=== PATIENT | female | born 1940 | race Caucasian/White ===

== ENCOUNTER 2017-01-22 03:34 | Inpatient (IN) | payer OTHER ==
--- NOTE | ~2017-01-22 | CN ---
Consultation Report [facility] [address] [place]. [address] NAME: JONAS WOODS : 44 STATUS : ADM IN [facility]#: [id number] AGE: 76 ADM/REG DATE : 01/22/17 MR#: [id number] REPORT SERV DATE: 01/22/17 DICTATED BY: TARAH ESPINOZA DATE: 01/22/17 REPORT STATUS : Draft TRANSCRIBED BY: MODL DATE: 01/22/17 NEPHROLOGY CONSULT DATE OF CONSULTATION: 01/22/2017 REASON FOR CONSULT: CKD, proteinuria. HISTORY OF PRESENT ILLNESS: Ms. Woods is a very pleasant 76-year-old white female, who has previously been seen in the office of [facility] by Dr. Agustin Valerio. Reviewing records shows that her creatinine was 0.8 in 03/2016. She had previously been on Avastin chemotherapy for stage IV ovarian cancer with her last dose being approximately in 09/2016. On 11/18/2016, creatinine was 2.4. On 11/25/2016, creatinine was 2.5, and on 12/09/2016, creatinine went up to 3.0. She was taken off ARB, HCTZ, and Aldactone with improvement in creatinine to 2.3 by 12/30/2016. At that time, her urine protein creatinine ratio was 1.42. She was admitted earlier today with pleural effusions and dyspnea, and she is status post 1100 mL right thoracentesis earlier today. Here at [facility], her creatinine is 3.0. She denies OTC use of NSAIDs or urinary outlet obstructive symptoms. PAST MEDICAL HISTORY: 1. Acute kidney injury/CKD as per HPI. 2. Thrombocytopenia. 3. Stage IV ovarian cancer, status post chemotherapy with MediPort in place. 4. Hyperlipidemia. 5. DVT and PE, status post IVC filter. 6. Hypertension. 7. Hypothyroid. MEDICATIONS ON ADMISSION: Amlodipine 2.5 mg daily, Lipitor, hydralazine 25 mg t.i.d., labetalol 200 mg b.i.d., Synthroid 25 mcg daily, and sodium bicarb. FAMILY HISTORY: No ESRD. SOCIAL HISTORY: Lifelong nonsmoker. 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 She is a and lives in [place]. REVIEW OF SYSTEMS: Please see HPI for pertinent details. PHYSICAL EXAMINATION: VITAL SIGNS: Temperature 95.7, pulse 73, respirations 20, blood pressure 178/94, and 99% saturation on 2 liters per nasal cannula. GENERAL: She is a very pleasant white female. Awake, alert, oriented, and cooperative with the exam. Consultation Report [facility] [address] [place]. [address] NAME: JONAS WOODS : 44 STATUS : ADM IN PAT#: [id number] AGE: 76 ADM/REG DATE : 01/22/17 MR#: [id number] REPORT SERV DATE: 01/22/17 DICTATED BY: TARAH ESPINOZA DATE: 01/22/17 REPORT STATUS : Draft TRANSCRIBED BY: MODMandy DATE: 01/22/17 NEUROLOGIC: Grossly nonfocal. She is in no distress, sitting in her hospital bed. Intake and output not recorded. HEENT: She has no icterus. No jaundice. NECK: JVD 8 to 10 cm. LUNGS: She has bilateral rhonchi with decreased breath sounds at the left base. No dyspnea or tachypnea on O2 per nasal cannula. HEART: Regular rate and rhythm. ABDOMEN: Soft, nontender, nondistended. Bowel sounds present throughout extremities without edema. SKIN: Without rash. No Tompkins catheters in place. MUSCULOSKELETAL: Shows bilateral hand osteoarthritis, deformities without acute gout. LABORATORY DATA: Sodium 141, potassium 4.4, bicarb 22, BUN 36, creatinine 3, GFR 15 mL/minute. Calcium 8.8. Troponin 0.03. Magnesium 2.4. White count 5,800 with 3% eosinophils. INR 1.1. Hemoglobin 13.5, platelets 54,000. Urinalysis shows proteinuria, but no hematuria. ASSESSMENT AND PLAN: Ms. Woods has developed progressive chronic kidney disease over the last two months in the setting of stage IV ovarian cancer, proteinuria, pleural effusions, hypertension, and thrombocytopenia. Her other medical history is as outlined above. The reason for her worsening chronic kidney disease and proteinuria is unclear. There is concern for Avastin-induced hypertension, proteinuria, and possibly thrombotic microangiopathy ? Long discussion with the patient and family today. If she does not improve over the weekend, would have a low threshold for proceeding with renal biopsy in the near future. In the meantime, check renal ultrasound and renal artery Doppler ultrasound, increase blood pressure medications, continue supportive care, watch labs, and avoid nephrotoxic medications. The reason for her pleural effusions may be related to proteinuria ? We will follow closely with you. Appreciate consult on this very pleasant patient. NC/MODL Tarah Espinoza M.D. / [id number] CC: MD Agustin Rich MD
--- NOTE | ~2017-01-22 | CN ---
Consultation Report [address] [place]. [address] NAME: JONAS BRYSON : 44 STATUS : DIS IN PAT#: [id number] AGE: 76 ADM/REG DATE : 01/22/17 MR#: [id number] REPORT SERV DATE: 01/24/17 DICTATED BY: BROOKE ROBERTS III DATE: 01/24/17 REPORT STATUS : Draft TRANSCRIBED BY: MODL DATE: 01/24/17 CONSULTATION DATE OF CONSULTATION: 01/23/2017 REASON FOR CONSULT: 1. Incisional hernia. 2. Recommendation regarding surgical management. HISTORY OF PRESENT ILLNESS: I am asked to see this 76-year-old female, hospitalized for the above reasons. As the patient has a history of ovarian cancer. She has had undergone definitive surgery and has been receiving chemotherapy. She is admitted on 01/22/2017 with chest pain, shortness of breath, secondary to pleural effusions. The patient has a chronic incisional hernia. She has had no nausea, vomiting, or obstructive symptoms, or pain associated with the hernia. The hernia is symptomatic in terms of local discomfort and she would like to consider having it repaired. PAST MEDICAL HISTORY: 1. History of ovarian cancer, which is recurrent. 2. Hypertension. 3. Hypothyroidism. 4. History of renal failure. 5. History of pulmonary embolus and deep venous thrombosis in the past. PAST SURGICAL HISTORY: Includes IVC filter, ankle surgery, cholecystectomy, cytoreductive surgery for ovarian cancer. FAMILY HISTORY: Unremarkable. SOCIAL HISTORY: No history of tobacco or alcohol use. MEDICATIONS: As per medication list. ALLERGIES: LATEX. REVIEW OF SYSTEMS: Basically with some nausea and shortness of breath. She states she has a hernia which is reducible. OBJECTIVE: GENERAL: On exam, she is alert and oriented x3. She is comfortable. HEENT: Unremarkable. NEUROLOGIC: Cranial nerves 2 through 12 are normal. LUNGS: Clear. Consultation Report [place] [place]. [address] NAME: JONAS BRYSON : 42 STATUS : DIS IN PAT#: [id number] AGE: 76 ADM/REG DATE : 01/22/17 MR#: [id number] REPORT SERV DATE: 01/24/17 DICTATED BY: BROOKE ROBERTS III DATE: 01/24/17 REPORT STATUS : Draft TRANSCRIBED BY: CAMMY DATE: 01/24/17 CARDIAC: Normal. ABDOMEN: Soft, nontender. She has a periumbilical hernia, which is soft and completely reducible. EXTREMITIES: Normal. VITAL SIGNS: Blood pressure 152/72, pulse 75, AND temperature 98.7. LABORATORY DATA: CT scan of the abdomen and pelvis and chest on admission shows large bilateral pleural effusions. There is moderate cardiomegaly. There was an anterior abdominal wall hernia noted as well with some ascites. Creatinine 2.97. ASSESSMENT: 1. A 76-year-old female with chronic asymptomatic and reducible incisional hernia. 2. Bilateral large pleural effusions which are symptomatic. 3. History of ovarian cancer, recurrent. 4. History of chronic kidney disease with creatinine 2.9. 5. History of previous cytoreductive surgery for ovarian cancer. 6. History of deep venous thrombosis and pulmonary embolus. 7. Hypothyroidism. PLAN: The patient has an incisional hernia which is stable, and reduced, and asymptomatic currently. The patient is currently being treated for her pleural effusions with bilateral thoracentesis. I have discussed with the patient, the fact that her hernia can be repaired electively if she wishes. This would depend on a stabilization of her renal function and would also be determined by her prognosis regarding her ovarian cancer. I do not feel the hernia needs to be repaired emergently on this admission. I have asked her to call my office after she is discharged when she wishes to schedule repair of the hernia, we will do so for her. This procedure, the risks, benefits, and alternatives were discussed with her. There is a potential risk for incarceration of the hernia and the symptoms, all these were discussed with her. Should she have any of these symptoms, she was asked to call or return. Otherwise, again I will see her back in the office and we will consider elective repair at that time. The patient's questions were answered. She understands and agrees to this plan. PANDA/CAMMY Brooke Roberts III, M.D. / [id number] CC: Rustam Dixon MD Consultation Report [facility] [address] [place] [address] NAME: JONAS BRYSON : 42 STATUS : DIS IN PAT#: [id number] AGE: 76 ADM/REG DATE : 01/22/17 MR#: [id number] REPORT SERV DATE: 01/24/17 DICTATED BY: BROOKE ROBERTS III DATE: 01/24/17 REPORT STATUS : Draft TRANSCRIBED BY: MODL DATE: 01/24/17 Duong Carlisle M.D.
--- NOTE | ~2017-01-22 | HP ---
History And Physical [facility] [address] [place]. [address] NAME: JONAS WOODS : 44 STATUS : ADM IN PAT#: [id number] AGE: 76 ADM/REG DATE : 01/22/17 MR#: [id number] REPORT SERV DATE: 01/22/17 DICTATED BY: RUSTAM DIXON DATE: 01/22/17 REPORT STATUS : Draft TRANSCRIBED BY: MODL DATE: 01/22/17 DATE OF ADMISSION: 01/22/2017 REASON FOR ADMISSION: Chest pain, shortness of breath, and recurrent ovarian cancer. HISTORY OF PRESENT ILLNESS: Ms. Woods is a delightful 76-year-old, 0, female, who is being treated for recurrent high-grade serous ovarian cancer, most recently treated with Doxil and Avastin. However, due to her persistent thrombocytopenia and decreased renal function due to Avastin use, we have been unable to treat her for the past several months. She has been on a chemo holiday. She up until today did not have any significant signs of active disease other than a palpable right inguinal lymph node. Last night, she started to have some what she describes as chest pain and also abdominal fullness and tenderness and some nausea, but no emesis. She was then taken to the emergency room for evaluation. A CT scan was done, which reveals bilateral pleural effusions right greater than left. Otherwise, there was some evidence of small bowel within the ventral hernia, but no evidence of strangulation, no evidence of high-grade bowel obstruction. PAST MEDICAL HISTORY: Hypertension, hypothyroidism, renal failure, hypercholesterolemia, recurrent ovarian cancer, history of pulmonary embolism, and deep venous thrombosis. PAST SURGICAL HISTORY: She had orthopedic surgery on the left ankle and IVC filter placed. She had cholecystectomy, appendectomy, and cytoreductive surgery for her ovarian cancer. GYNECOLOGIC HISTORY: Ovarian cancer. FAMILY HISTORY: Negative for GI, , or breast malignancies. She is negative for BRCA mutation. SOCIAL HISTORY: Negative for tobacco, alcohol, or illicit drug use. MEDICATIONS: Please see chart. ALLERGIES: LATEX. REVIEW OF SYSTEMS: Significant for mild abdominal discomfort, some nausea, shortness of breath, fullness in her chest but not necessarily chest pain this morning per her report. She denies any vaginal bleeding. No vomiting. No swelling in her extremities. PHYSICAL EXAMINATION: VITAL SIGNS: She is afebrile. She has elevated blood pressure this morning of 190/80. We will restart her home medications this morning. HEENT: Normocephalic and atraumatic. HEART: Regular rate and rhythm. LUNGS: She has decreased breath sounds in the bilateral lung bases and the bases of her lungs are dull to percussion where her upper lobes are more tympanic. History And Physical [address] [place]. [address] NAME: JONAS WOODS : 42 STATUS : ADM IN PAT#: [id number] AGE: 76 ADM/REG DATE : 01/22/17 MR#: [id number] REPORT SERV DATE: 01/22/17 DICTATED BY: RUSTAM DIXON DATE: 01/22/17 REPORT STATUS : Draft TRANSCRIBED BY: CAMMY DATE: 01/22/17 ABDOMEN: Soft with no appreciable tenderness. There is a ventral midline hernia with a reducible knuckle of small bowel present. She is tender over this area. EXTREMITIES: No clubbing, cyanosis, or edema. IMAGING: On CT scan, again there was noted to be bilateral pleural effusions and some cardiomegaly that was described as bilateral large pleural effusions on the [facility] scan read. The overnight read was described as moderate on the right and small on the left. I am unable to view the images this morning. There was also hernia noted. There was a discrepancy in the CT scan reads, but she does not have any physical signs of small-bowel obstruction. ASSESSMENT AND PLAN: Going forward, I will ask the Interventional Radiology to drain the right lung and we will sent for cytology and culture. I will also consult Dr. Jose Trujillo with Surgery for evaluation of her hernia repair. This may or may not be able to be done this hospital admission, but at least initiate the evaluation. Her platelet count is 54 today , which is low, but will still be conducive to an operation if they deem necessary. Her creatinine is 2.9, and this is chronic in nature, and again likely due to her bevacizumab treatment previously and also her chronic hypertension. We will proceed as outlined above. This plan was discussed in detail with the patient, who is in agreement. TB/MODL Rustam Dixon MD / [id number] CC: MD Duong Rich M.D.
[~2017-01-22 03:34] MED LIST: ACET500CAP PO; AVASTIN IV; CHEMO IV; COMP10B PO; DEX4 PO; EXCEDRIN EXTRA1 EACH PO; HCTZ12.5 PO; HYDROCHLOROT12.5 MG PO; HYDROCHLOROTHIAZIDE PO; KDUR10 PO; KLOR-CON M1010 MEQ PO; LEVAQUIN750 MG PO; LEVOTHYROXIN25 MCG PO; LEVOTHYROXINE PO; LIPITOR PO; LIPITOR10 PO; LOVENOX40 SC; LOVENOX60 SC; MAGNESIUM PO; METANX PO; NEUR300 PO; PCET PO; PRILO PO; PROTONIX PO; SENOKOTS PO; SYN.025B PO; TOPXL50 PO; VANC125UDL PO; ZOFRAN8; ZOFRAN8 PO; ZOFRANODT8 PO; [UNRECOGNIZED DRUG - OTHER] IV
[2017-01-22 03:36] LABS: BASOPHILS 0.5 %; BASOPHILS ABSOLUTE 0.03 10/3/uL (0.0-0.16); EOSINOPHILS 2.7 %; EOSINOPHILS ABSOLUTE 0.16 10/3/uL (0.0-0.53); ER CBC TAT 0 Hrs 05 Mins; HEMATOCRIT 39.6 % (36.0-48.0); HEMOGLOBIN 13.5 g/dL (12.0-16.0); IMMATURE GRANULOCYTES 0.2 %; IMMATURE GRANULOCYTES ABSOLUTE 0.01 10/3/uL (0.0-0.11); LYMPHOCYTES 12.3 %; LYMPHOCYTES ABSOLUTE 0.72 10/3/uL (0.67-4.30); MEAN CORPUS HGB CONC 34.1 g/dL (32.0-36.0); MEAN CORPUSCULAR HEMOGLOB 31.7 pg (26.0-34.0); MEAN PLATELET VOLUME 10.2 fL (9.2-13.0); MONOCYTES 8.2 %; MONOCYTES ABSOLUTE 0.48 10/3/uL (0.21-1.20); NEUTROPHILS 76.1 %; NEUTROPHILS ABSOLUTE 4.43 10/3/uL (2.02-8.40); PLATELET COUNT 54 10/3/uL (150-400); RBC DISTRIBUTION WIDTH 16.9 % (12.0-16.0); RED CELL COUNT 4.26 10/6/uL (4.0-5.6); WHITE BLOOD CELLS 5.8 10/3/uL (4.5-10.5)
[2017-01-22 03:41] LABS: INTERNATIONAL NORMAL RATI 1.1 UNITS (-); PARTIAL THROMBO TIME 28.7 SEC (22.5-37.2); PROTIME (NOT ORD) 13.8 SEC (12.0-14.5)
[2017-01-22 03:45] LABS: MANUAL DIFF NO %
[2017-01-22 03:49] LABS: ASCORBIC ACID (UR NOT ORDER) 20 (NEG); BILIRUBIN, URINE NEGATIVE (NEG); ER URINALYSIS TAT 0 Hrs 00 Mins; KETONE, URINE NEGATIVE (NEG); LEUKOCYTE ESTERASE(NOT OR NEG (NEG); NITRITE (URINE) NEG (NEG); WBC (NOT ORDERED) (RFLEX) 10 (0-5)
[2017-01-22 03:50] LABS: BUN (BLOOD UREA NITROGEN) 36 MG/DL (6-23); CALCIUM, SERUM 8.8 MG/DL (8.5-10.4); CHEST PAIN PROFILE TAT 0 Hrs 19 Mins; CHLORIDE, SERUM 110 MMOL/L (96-112); CO2 (CARBON DIOXIDE) 21 MMOL/L (24-34); CREATININE 2.97 MG/DL (0.55-1.02); GFR AFRICAN AMERICAN 17 ML/MIN (>=60); GFR NON AFRICAN AMERICAN 15 ML/MIN (>=60); GLUCOSE, SERUM 125 MG/DL (60-99); POTASSIUM, SERUM 4.4 MMOL/L (3.5-5.3); SODIUM, SERUM 141 MMOL/L (135-148); TROPONIN I 0.03 NG/ML (<0.05)
[2017-01-22 04:04] LABS: PLATELET ESTIMATE DEC (ADEQUATE); RBC MORPHOLOGY ABN (NORMAL)
[2017-01-22] MEDS ORDERED: [UNRECOGNIZED DRUG - OTHER] IV (04:45)
[2017-01-22] MEDS ORDERED: NORV25 PO (04:46)
[2017-01-22] MEDS ORDERED: TRAN200 PO (04:47)
[2017-01-22] MEDS ORDERED: SODBICAR10 PO (04:47)
[2017-01-22] MEDS ORDERED: APRES25 PO (04:47)
[2017-01-22] MEDS ORDERED: LIPITOR10 PO (04:48)
[2017-01-22] MEDS ORDERED: SYN88 PO (04:48)
[2017-01-22] MEDS ORDERED: ZANTAC OTC PO (04:49)
[2017-01-22] MEDS ORDERED: ACET500CAP PO (04:50)
[2017-01-23 04:53] LABS: BASOPHILS 0.8 %; BASOPHILS ABSOLUTE 0.04 10/3/uL (0.0-0.16); EOSINOPHILS 2.3 %; EOSINOPHILS ABSOLUTE 0.12 10/3/uL (0.0-0.53); HEMOGLOBIN 11.6 g/dL (12.0-16.0); LYMPHOCYTES 14.2 %; LYMPHOCYTES ABSOLUTE 0.73 10/3/uL (0.67-4.30); MEAN CORPUS HGB CONC 33.6 g/dL (32.0-36.0); MEAN CORPUSCULAR VOLUME 95.3 fL (80-100); MEAN PLATELET VOLUME 9.9 fL (9.2-13.0); MONOCYTES 9.3 %; MONOCYTES ABSOLUTE 0.48 10/3/uL (0.21-1.20); NEUTROPHILS 73.4 %; NEUTROPHILS ABSOLUTE 3.78 10/3/uL (2.02-8.40); RBC DISTRIBUTION WIDTH 16.5 % (12.0-16.0); RED CELL COUNT 3.62 10/6/uL (4.0-5.6); WHITE BLOOD CELLS 5.2 10/3/uL (4.5-10.5)
[2017-01-23 04:56] LABS: HEMATOCRIT 34.5 % (36.0-48.0); PLATELET COUNT 48 10/3/uL (150-400)
[2017-01-23 04:57] LABS: MANUAL DIFF NO %
[2017-01-23 05:47] LABS: PLATELET ESTIMATE DEC (ADEQUATE); RBC MORPHOLOGY NORM (NORMAL)
[2017-01-23 06:13] LABS: BUN (BLOOD UREA NITROGEN) 38 MG/DL (6-23); CALCIUM, SERUM 8.2 MG/DL (8.5-10.4); CHLORIDE, SERUM 112 MMOL/L (96-112); CO2 (CARBON DIOXIDE) 20 MMOL/L (24-34); CREATININE 2.95 MG/DL (0.55-1.02); GFR AFRICAN AMERICAN 17 ML/MIN (>=60); GFR NON AFRICAN AMERICAN 15 ML/MIN (>=60); POTASSIUM, SERUM 4.6 MMOL/L (3.5-5.3); SODIUM, SERUM 144 MMOL/L (135-148)
[2017-01-23 06:16] LABS: ALBUMIN 2.8 G/DL (3.5-5.0); GLUCOSE, SERUM 71 MG/DL (60-99); PHOSPHORUS, SERUM 4.2 MG/DL (2.5-4.5)
[2017-01-24 04:43] LABS: BASOPHILS 0.4 %; BASOPHILS ABSOLUTE 0.02 10/3/uL (0.0-0.16); EOSINOPHILS 3.7 %; EOSINOPHILS ABSOLUTE 0.17 10/3/uL (0.0-0.53); HEMATOCRIT 33.5 % (36.0-48.0); HEMOGLOBIN 10.9 g/dL (12.0-16.0); IMMATURE GRANULOCYTES 0.2 %; IMMATURE GRANULOCYTES ABSOLUTE 0.01 10/3/uL (0.0-0.11); LYMPHOCYTES 17.1 %; LYMPHOCYTES ABSOLUTE 0.79 10/3/uL (0.67-4.30); MEAN CORPUS HGB CONC 32.5 g/dL (32.0-36.0); MEAN CORPUSCULAR HEMOGLOB 31.7 pg (26.0-34.0); MEAN CORPUSCULAR VOLUME 97.4 fL (80-100); MEAN PLATELET VOLUME 10.7 fL (9.2-13.0); MONOCYTES 8.7 %; NEUTROPHILS 69.9 %; NEUTROPHILS ABSOLUTE 3.22 10/3/uL (2.02-8.40); RED CELL COUNT 3.44 10/6/uL (4.0-5.6); WHITE BLOOD CELLS 4.6 10/3/uL (4.5-10.5)
[2017-01-24 04:45] LABS: MANUAL DIFF NO %; PLATELET COUNT 48 10/3/uL (150-400)
[2017-01-24 04:55] LABS: ALBUMIN 2.8 G/DL (3.5-5.0); CALCIUM, SERUM 8.2 MG/DL (8.5-10.4); CHLORIDE, SERUM 109 MMOL/L (96-112); CO2 (CARBON DIOXIDE) 19 MMOL/L (24-34); CREATININE 2.91 MG/DL (0.55-1.02); GFR AFRICAN AMERICAN 18 ML/MIN (>=60); GFR NON AFRICAN AMERICAN 15 ML/MIN (>=60); GLUCOSE, SERUM 60 MG/DL (60-99); POTASSIUM, SERUM 4.6 MMOL/L (3.5-5.3); SODIUM, SERUM 142 MMOL/L (135-148)
[2017-01-24 04:56] LABS: BUN (BLOOD UREA NITROGEN) 43 MG/DL (6-23)
[2017-02-28] MEDS ORDERED: APRES25 PO (16:19)
[2017-02-28] MEDS ORDERED: LEVOTHYROXIN88 MCG PO (16:19)
[2017-02-28] MEDS ORDERED: NORV5 PO (16:19)
[2017-02-28] MEDS ORDERED: SODBICAR10 PO (16:19)
[2017-02-28] MEDS ORDERED: TRAN200 PO (16:19)
[2017-02-28] MEDS ORDERED: [UNRECOGNIZED DRUG - OTHER] IV (16:20)
[2017-02-28] MEDS ORDERED: MULTIVIT/MIN PO (16:21)
[2017-02-28] MEDS ORDERED: VITD PO (16:21)
[2017-02-28] MEDS ORDERED: GLUTAMINE PO (16:21)
[2017-06-16] MEDS ORDERED: [UNRECOGNIZED DRUG - MIXTURE] IV (15:01)
[2017-06-16] MEDS ORDERED: CENTRUM PO (15:01)
[2017-06-16] MEDS ORDERED: LEVOTHYROXIN88 MCG PO (15:02)
[2017-06-16] MEDS ORDERED: CHEMOTHERAPY IV (15:02)
[2017-06-16] MEDS ORDERED: SODBICAR10 PO (15:03)
[2017-06-16] MEDS ORDERED: VITD PO (15:03)
[2017-06-16] MEDS ORDERED: DEMA100 PO (15:03)
[2017-06-16] MEDS ORDERED: TRAN200 PO (15:04)
[2017-06-16] MEDS ORDERED: NORV5 PO (15:04)
[2017-06-16] MEDS ORDERED: APRES50 PO (15:04)
[2017-06-21] MEDS ORDERED: PERCOCET 7.5/321 TAB PO (07:36)
== END 2017-01-24 12:32 | disposition home or self-care (01) | DRG 187 ==
LOC: ER 03:34 → ER/OF 04:39 → 2SO 06:33 → 4EA 17:55
PROVIDERS: Emergency Medicine; Internal Medicine Nephrology
PROC: 0W993ZX Drainage of Right Pleural Cavity, Percutaneous Approach, Diagnostic (ICD-10-PCS; principal; 2017-01-22)
PROC: 0W9B3ZX Drainage of Left Pleural Cavity, Percutaneous Approach, Diagnostic (ICD-10-PCS; 2017-01-23)
DX: J90 Pleural effusion, not elsewhere classified (principal); N17.9 Acute kidney failure, unspecified; C56.9 Malignant neoplasm of unspecified ovary; D69.6 Thrombocytopenia, unspecified; K43.9 Ventral hernia without obstruction or gangrene; E78.00 Pure hypercholesterolemia, unspecified; R06.02 Shortness of breath; Z98.890 Other specified postprocedural states; Z91.040 Latex allergy status; Z86.718 Personal history of other venous thrombosis and embolism; Z86.711 Personal history of pulmonary embolism; K43.2 Incisional hernia without obstruction or gangrene
CPT/HCPCS: 32555; 49405; 71010; 71250; 74176; 80048; 80069; 81001; 82570; 83735; 84156; 84484; 85025; 85610; 85730; 87070; 87075; 87205; 88112; 88305; 93005; 93975; 99291; A9270-GY; C1769; J1170; J2405

== ENCOUNTER 2017-01-31 14:14 | Emergency (ER) | payer OTHER ==
[~2017-01-31 14:14] MED LIST changes: +APRES25 PO; +NORV25 PO; +SODBICAR10 PO; +SYN88 PO; +TRAN200 PO; +ZANTAC OTC PO
[2017-01-31 15:36] LABS: BASOPHILS 0.7 %; BASOPHILS ABSOLUTE 0.03 10/3/uL (0.0-0.16); EOSINOPHILS 2.8 %; EOSINOPHILS ABSOLUTE 0.13 10/3/uL (0.0-0.53); ER CBC TAT 0 Hrs 07 Mins; HEMATOCRIT 34.1 % (36.0-48.0); HEMOGLOBIN 11.1 g/dL (12.0-16.0); IMMATURE GRANULOCYTES 0.2 %; LYMPHOCYTES 10.5 %; LYMPHOCYTES ABSOLUTE 0.48 10/3/uL (0.67-4.30); MEAN CORPUS HGB CONC 32.6 g/dL (32.0-36.0); MEAN CORPUSCULAR HEMOGLOB 31.6 pg (26.0-34.0); MEAN CORPUSCULAR VOLUME 97.2 fL (80-100); MEAN PLATELET VOLUME 9.5 fL (9.2-13.0); MONOCYTES 13.5 %; MONOCYTES ABSOLUTE 0.62 10/3/uL (0.21-1.20); NEUTROPHILS 72.3 %; NEUTROPHILS ABSOLUTE 3.31 10/3/uL (2.02-8.40); PLATELET COUNT 50 10/3/uL (150-400); RBC DISTRIBUTION WIDTH 15.4 % (12.0-16.0); RED CELL COUNT 3.51 10/6/uL (4.0-5.6); WHITE BLOOD CELLS 4.6 10/3/uL (4.5-10.5)
[2017-01-31 15:37] LABS: IMMATURE GRANULOCYTES ABSOLUTE 0.01 10/3/uL (0.0-0.11); MANUAL DIFF NO %
[2017-01-31 15:58] LABS: PLATELET ESTIMATE DEC (ADEQUATE)
[2017-01-31 16:23] LABS: ALBUMIN 3.2 G/DL (3.5-5.0); ALKALINE PHOSPHATASE 85 U/L (45-117); CALCIUM, SERUM 8.1 MG/DL (8.5-10.4); CHLORIDE, SERUM 110 MMOL/L (96-112); CO2 (CARBON DIOXIDE) 22 MMOL/L (24-34); CREATININE 3.14 MG/DL (0.55-1.02); GFR AFRICAN AMERICAN 16 ML/MIN (>=60); GFR NON AFRICAN AMERICAN 14 ML/MIN (>=60); POTASSIUM, SERUM 5.1 MMOL/L (3.5-5.3); SGOT(AST) 12 U/L (5-40); SGPT(ALT) 11 U/L (5-65); SODIUM, SERUM 143 MMOL/L (135-148); TOTAL BILIRUBIN 0.7 MG/DL (0-1.2); TOTAL PROTEIN 6.3 G/DL (6.0-8.5)
[2017-01-31 16:24] LABS: BUN (BLOOD UREA NITROGEN) 36 MG/DL (6-23); GLOBULIN 3.1 G/DL (2.5-4.1); GLUCOSE, SERUM 102 MG/DL (60-99)
[2017-02-28] MEDS ORDERED: NORV5 PO (16:19)
[2017-02-28] MEDS ORDERED: LEVOTHYROXIN88 MCG PO (16:19)
[2017-02-28] MEDS ORDERED: APRES25 PO (16:19)
[2017-02-28] MEDS ORDERED: TRAN200 PO (16:19)
[2017-02-28] MEDS ORDERED: SODBICAR10 PO (16:19)
[2017-02-28] MEDS ORDERED: [UNRECOGNIZED DRUG - OTHER] IV (16:20)
[2017-02-28] MEDS ORDERED: GLUTAMINE PO (16:21)
[2017-02-28] MEDS ORDERED: MULTIVIT/MIN PO (16:21)
[2017-02-28] MEDS ORDERED: VITD PO (16:21)
[2017-06-16] MEDS ORDERED: [UNRECOGNIZED DRUG - MIXTURE] IV (15:01)
[2017-06-16] MEDS ORDERED: CENTRUM PO (15:01)
[2017-06-16] MEDS ORDERED: CHEMOTHERAPY IV (15:02)
[2017-06-16] MEDS ORDERED: LEVOTHYROXIN88 MCG PO (15:02)
[2017-06-16] MEDS ORDERED: SODBICAR10 PO (15:03)
[2017-06-16] MEDS ORDERED: DEMA100 PO (15:03)
[2017-06-16] MEDS ORDERED: VITD PO (15:03)
[2017-06-16] MEDS ORDERED: APRES50 PO (15:04)
[2017-06-16] MEDS ORDERED: NORV5 PO (15:04)
[2017-06-16] MEDS ORDERED: TRAN200 PO (15:04)
[2017-06-21] MEDS ORDERED: PERCOCET 7.5/321 TAB PO (07:36)
== END 2017-01-31 17:06 | disposition home or self-care (01) ==
LOC: ER 14:14
PROVIDERS: Emergency Medicine
DX: J90 Pleural effusion, not elsewhere classified (principal); C56.9 Malignant neoplasm of unspecified ovary; I10 Essential (primary) hypertension; Z91.040 Latex allergy status; Z88.8 Allergy status to other drugs, medicaments and biological substances; Z79.899 Other long term (current) drug therapy
CPT/HCPCS: 71010; 80053; 85025; 93005; 99285

== ENCOUNTER 2017-02-20 18:15 | Inpatient (IN) | payer OTHER ==
--- NOTE | ~2017-02-20 | HP ---
History And Physical [address] [place]. [address] NAME: JONAS WOODS : 42 STATUS : DIS IN PAT#: [id number] AGE: 76 ADM/REG DATE : 02/20/17 MR#: [id number] REPORT SERV DATE: 04/10/17 DICTATED BY: CRESCENCIO FRANCO DATE: 04/10/17 REPORT STATUS : Draft TRANSCRIBED BY: CAMMY DATE: 04/10/17 DATE OF ADMISSION: 02/20/2017 ADMITTING DIAGNOSES: 1. Ovarian carcinoma. 2. Shortness of breath. 3. Ascites. HISTORY OF PRESENT ILLNESS: Ms. Jonas Woods is a 76-year-old female who has a history of ovarian carcinoma, who has ascites with a pleural effusion. She presents with increasing shortness of breath. She was admitted for oxygen and a thoracentesis. PAST MEDICAL HISTORY: Significant for hypertension, hyperlipidemia, hypothyroidism, and GERD. CURRENT MEDICATIONS: Include amlodipine, atorvastatin, Apresoline, labetalol, levothyroxine, and Zantac. PAST SURGICAL HISTORY: She has had a previous exploratory laparotomy with removal of her uterus, tubes, ovaries, cervix, and ovarian cancer staging. She has had placement of a port a-catheter. SOCIAL HISTORY: Negative for any tobacco, alcohol, or illicit drug use. PHYSICAL EXAMINATION: GENERAL: She is awake, alert, and oriented x3. Intact memory, in no apparent distress. HEENT: Reveals no gross defects. Her extraocular movements are symmetrical and intact. Her ears and nose without defects or lesions. Her hearing is intact and normal for age. LUNGS: Revealed decreased breath sounds at the bases. HEART: Regular rate and rhythm without abnormal noises. ABDOMEN: Soft, nontender with no palpable masses, hernias, or other appreciable defects. EXTREMITIES: Both upper and lower have full range of motion. No clubbing, varicosities, or edema. In summary, this is a 76-year-old female, who has a known diagnosis of ovarian carcinoma who now has a pleural effusion and shortness of breath. She was admitted for oxygen and a thoracentesis. MEGGAN/CAMMY Crescencio Franco M.D. / [id number] History And Physical [address] [address] NAME: JONAS WOODS : 44 STATUS : DIS IN PAT#: [id number] AGE: 76 ADM/REG DATE : 02/20/17 MR#: [id number] REPORT SERV DATE: 04/10/17 DICTATED BY: CRESCENCIO FRANCO DATE: 04/10/17 REPORT STATUS : Draft TRANSCRIBED BY: CAMMY DATE: 04/10/17 CC: Crescencio Franco M.D.
[2017-02-20 19:57] LABS: HEMATOCRIT 33.6 % (36.0-48.0); HEMOGLOBIN 11.1 g/dL (12.0-16.0); MEAN CORPUSCULAR HEMOGLOB 31.3 pg (26.0-34.0); MEAN CORPUSCULAR VOLUME 94.6 fL (80-100); MEAN PLATELET VOLUME 10.8 fL (9.2-13.0); RBC DISTRIBUTION WIDTH 16.7 % (12.0-16.0); RED CELL COUNT 3.55 10/6/uL (4.0-5.6); WHITE BLOOD CELLS 6.3 10/3/uL (4.5-10.5)
[2017-02-20 20:01] LABS: MANUAL DIFF YES %; PLATELET COUNT 45 10/3/uL (150-400)
[2017-02-20 20:09] LABS: CALCIUM, SERUM 8.6 MG/DL (8.5-10.4); CHLORIDE, SERUM 108 MMOL/L (96-112); CO2 (CARBON DIOXIDE) 25 MMOL/L (24-34); CREATININE 3.08 MG/DL (0.55-1.02); GFR AFRICAN AMERICAN 16 ML/MIN (>=60); GFR NON AFRICAN AMERICAN 14 ML/MIN (>=60); GLUCOSE, SERUM 96 MG/DL (60-99); POTASSIUM, SERUM 5.4 MMOL/L (3.5-5.3); SODIUM, SERUM 140 MMOL/L (135-148)
[2017-02-20 20:11] LABS: BUN (BLOOD UREA NITROGEN) 61 MG/DL (6-23)
[2017-02-20 20:58] LABS: LYMPHOCYTES 11 %; LYMPHOCYTES ABSOLUTE (CALC) 0.69 10/3/uL (0.67-4.30); MONOCYTES 1 %; MONOCYTES ABSOLUTE (CALC) 0.06 10/3/uL (0.21-1.20); NEUTROPHILS ABSOLUTE (CALC) 5.54 10/3/uL (2.02-8.40); SEGMENTED NEUTROPHIL (0) 88 %; TOTAL NUCLEATED CELLS 100
[2017-02-20 20:59] LABS: ANISOCYTOSIS 1+ (5-10/OIF) (0-5/OIF)
[2017-02-20 21:00] LABS: MACROCYTES 1+ (5-10/OIF) (0-5/OIF); MICROCYTES 1+ (5-10/OIF) (0-5/OIF); OVALOCYTES 1+ (3-10/OIF) (0-2/OIF)
[2017-02-21 13:34] LABS: INTERNATIONAL NORMAL RATI 1.1 UNITS (-); PROTIME (NOT ORD) 14.3 SEC (12.0-14.5)
[2017-02-21 13:37] LABS: POTASSIUM, SERUM 5.4 MMOL/L (3.5-5.3)
[2017-02-21 15:04] LABS: PFA (COL/ADP) 141 SEC (51-105); PFA (COL/EPI) > 216 SEC (72-180)
[2017-02-22 04:44] LABS: BUN (BLOOD UREA NITROGEN) 58 MG/DL (6-23); CALCIUM, SERUM 7.8 MG/DL (8.5-10.4); CHLORIDE, SERUM 111 MMOL/L (96-112); CO2 (CARBON DIOXIDE) 23 MMOL/L (24-34); CREATININE 3.06 MG/DL (0.55-1.02); GFR AFRICAN AMERICAN 17 ML/MIN (>=60); GFR NON AFRICAN AMERICAN 14 ML/MIN (>=60); GLUCOSE, SERUM 85 MG/DL (60-99); POTASSIUM, SERUM 4.9 MMOL/L (3.5-5.3); SODIUM, SERUM 139 MMOL/L (135-148)
[2017-02-22 04:48] LABS: BASOPHILS 0.5 %; BASOPHILS ABSOLUTE 0.02 10/3/uL (0.0-0.16); EOSINOPHILS 2.3 %; HEMOGLOBIN 9.6 g/dL (12.0-16.0); LYMPHOCYTES 14.5 %; LYMPHOCYTES ABSOLUTE 0.62 10/3/uL (0.67-4.30); MEAN CORPUS HGB CONC 33.7 g/dL (32.0-36.0); MEAN CORPUSCULAR HEMOGLOB 32.2 pg (26.0-34.0); MEAN CORPUSCULAR VOLUME 95.6 fL (80-100); MEAN PLATELET VOLUME 10.3 fL (9.2-13.0); MONOCYTES 1.9 %; MONOCYTES ABSOLUTE 0.08 10/3/uL (0.21-1.20); NEUTROPHILS 80.8 %; NEUTROPHILS ABSOLUTE 3.46 10/3/uL (2.02-8.40); RBC DISTRIBUTION WIDTH 16.6 % (12.0-16.0); RED CELL COUNT 2.98 10/6/uL (4.0-5.6); WHITE BLOOD CELLS 4.3 10/3/uL (4.5-10.5)
[2017-02-22 04:50] LABS: HEMATOCRIT 28.5 % (36.0-48.0); MANUAL DIFF NO %; PLATELET COUNT 42 10/3/uL (150-400)
[2017-02-22 06:16] LABS: RBC MORPHOLOGY NORM (NORMAL)
[2017-02-22] MEDS ORDERED: NORV5 PO (10:26)
[2017-02-22] MEDS ORDERED: TRAN200 PO (10:26)
[2017-02-28] MEDS ORDERED: APRES25 PO (16:19)
[2017-02-28] MEDS ORDERED: SODBICAR10 PO (16:19)
[2017-02-28] MEDS ORDERED: TRAN200 PO (16:19)
[2017-02-28] MEDS ORDERED: NORV5 PO (16:19)
[2017-02-28] MEDS ORDERED: LEVOTHYROXIN88 MCG PO (16:19)
[2017-02-28] MEDS ORDERED: [UNRECOGNIZED DRUG - OTHER] IV (16:20)
[2017-02-28] MEDS ORDERED: MULTIVIT/MIN PO (16:21)
[2017-02-28] MEDS ORDERED: VITD PO (16:21)
[2017-02-28] MEDS ORDERED: GLUTAMINE PO (16:21)
[2017-06-16] MEDS ORDERED: [UNRECOGNIZED DRUG - MIXTURE] IV (15:01)
[2017-06-16] MEDS ORDERED: CENTRUM PO (15:01)
[2017-06-16] MEDS ORDERED: CHEMOTHERAPY IV (15:02)
[2017-06-16] MEDS ORDERED: LEVOTHYROXIN88 MCG PO (15:02)
[2017-06-16] MEDS ORDERED: VITD PO (15:03)
[2017-06-16] MEDS ORDERED: DEMA100 PO (15:03)
[2017-06-16] MEDS ORDERED: SODBICAR10 PO (15:03)
[2017-06-16] MEDS ORDERED: TRAN200 PO (15:04)
[2017-06-16] MEDS ORDERED: NORV5 PO (15:04)
[2017-06-16] MEDS ORDERED: APRES50 PO (15:04)
[2017-06-21] MEDS ORDERED: PERCOCET 7.5/321 TAB PO (07:36)
== END 2017-02-22 13:24 | disposition home or self-care (01) | DRG 187 ==
LOC: CDU1 18:15 → 4EA 02-21 17:42
PROVIDERS: Obstetrics & Gynecology Gynecologic Oncology
PROC: 0W993ZZ Drainage of Right Pleural Cavity, Percutaneous Approach (ICD-10-PCS; principal; 2017-02-21)
DX: J90 Pleural effusion, not elsewhere classified (principal); C56.9 Malignant neoplasm of unspecified ovary; I10 Essential (primary) hypertension; E78.00 Pure hypercholesterolemia, unspecified; K21.9 Gastro-esophageal reflux disease without esophagitis; E03.9 Hypothyroidism, unspecified; Z98.890 Other specified postprocedural states
CPT/HCPCS: 32555; 36415; 71010; 71020; 80048; 80051; 85025; 85049; 85576; 85610; 85730; 86850; 86900; 86901; A9270-GY; J1940

== ENCOUNTER 2017-02-28 16:32 | Inpatient (IN) | payer OTHER ==
--- NOTE | ~2017-02-28 | CN ---
Consultation Report [facility] [address] [place]. [address] NAME: JONAS WOODS : 42 STATUS : ADM IN PAT#: [id number] AGE: 76 ADM/REG DATE : 02/28/17 MR#: [id number] REPORT SERV DATE: 03/01/17 DICTATED BY: RUSTAM DIXON DATE: 03/01/17 REPORT STATUS : Draft TRANSCRIBED BY: MODL DATE: 03/01/17 CONSULTATION NOTE DATE OF CONSULTATION: 03/01/2017 REASON FOR CONSULTATION: Recurrent ovarian cancer. HISTORY OF PRESENT ILLNESS: Ms. Woods is a delightful 76-year-old, female, who has been under my care for recurrent ovarian cancer. Her treatment dates back to 2014 and currently she has relatively indolent disease, with several small areas of lymph node recurrence. She has been treated with single agent Taxol most recently, but has gotten multiple agents in the past including carboplatin, Doxil, and Avastin. She developed renal failure while on Avastin therapy and that was stopped as a result. She has had these recurrent pleural effusions requiring multiple thoracentesis, the plan in the future was to ask IR to perform a pleurodesis with either talc or bleomycin at the time of her next thoracentesis. She called the office number yesterday and was complaining of increasing shortness of breath and labored breathing, and she went to the emergency room where she was evaluated. Her chest x-ray was done and was consistent with blunting the right costophrenic angle, with a small pleural effusion, some atelectasis on the right lung base, with some noted airspace disease, with a moderate size left pleural effusion. Since she has been admitted, she has had a T-max of 102.6 on 07/31/2017 at 2300 hours. Blood cultures and urine cultures were drawn and she was started on vancomycin and cefepime by the hospitalist service. She is relatively asymptomatic other than her shortness of breath. This is new for her. PAST MEDICAL HISTORY: Hypertension, hypothyroidism, hypercholesterolemia, and renal failure. PAST SURGICAL HISTORY: She has had an IVC filter placed, due to history of thromboembolic disease. She has had exploratory laparotomy with cytoreductive surgery for ovarian cancer. She has a known ventral hernia which was going to be repaired by General surgery, but they decided not to, since she was asymptomatic and given her renal function. FAMILY HISTORY: Negative for GI, , or breast malignancies. SOCIAL HISTORY: She drinks occasional alcohol. Denies tobacco or illicit drug use. ALLERGIES: LATEX. REVIEW OF SYSTEMS: Significant for shortness of breath, generalized fatigue, and pain at the site of her ventral abdominal hernia. She denies any lower extremity edema or pain. She denies any chest pain. No nausea or vomiting. PHYSICAL EXAMINATION: Consultation Report [address] [address] [facility] [place]. [address] NAME: JONAS WOODS : 44 STATUS : ADM IN PAT#: [id number] AGE: 76 ADM/REG DATE : 02/28/17 MR#: [id number] REPORT SERV DATE: 03/01/17 DICTATED BY: RUSTAM DIXON DATE: 03/01/17 REPORT STATUS : Draft TRANSCRIBED BY: CAMMY DATE: 03/01/17 VITAL SIGNS: Her T-max is 102.6, which is at 2300 hours on 02/28/2017. Temperature currently is 100.8, pulse is 88 to 94, blood pressure currently is 184/94. She is 63 inches tall, weighs 114 pounds with a BMI of 20.2. HEENT: Normocephalic and atraumatic. LUNGS: She has coarse breath sounds bilaterally with increased work of breathing. CARDIOVASCULAR: She has a regular rate and rhythm. ABDOMEN: Soft with minimal distention, with a known palpable ventral hernia. EXTREMITIES: No clubbing, cyanosis, or edema. PELVIC: Deferred. LABORATORY EVALUATION: Her white blood cell count was 2.9 on admission, it is 2.2 now, her platelets were 38 on admission, now 32, her creatinine was 2.9 on admission, now 3.1, and her potassium was slightly elevated at 5.9, it is now down to 4.4. Her beta natriuretic peptide was greater than 2000 at 3672. She has an echocardiogram ordered. ASSESSMENT AND PLAN: Going forward, I appreciate the hospitalist assistance with her shortness of breath, given the elevation of beta natriuretic peptide. This may represent some heart failure. She has an echocardiogram ordered. As far as the source of her fever, pneumonia, bacteremia, or urinary tract infection, are all reasonable candidate. She has cultures ordered. She also had some diarrhea. I will check a Clostridium difficile as she had two episodes of Clostridium difficile in the past. The next time she needs a thoracentesis, I will ask interventional radiology to see if they can perform a pleurodesis, to try to prevent her recurrent pleural effusions. Cytology has been ordered on her effusions and all these effusions are without evidence of malignant cells. As far as her elevated creatinine, this is likely due to her prior of Avastin chemotherapy. She developed this renal failure while on Avastin which is a known complication. She is currently on weekly Taxol and she just started, so, I have been unable to assess response. Hopefully, she can recover from her acute events and continue with the chemotherapy as she has low volume disease at this point, and has a reasonably good prognosis with a survival time of at least a year. Thank you very much for this consultation. I will follow along and help out as I can. Thank you very much for allowing me to participate in the care of this rachel patient. TB/MODL Rustam Dixon MD / [id number] CC: Gal Potts Jr, MD
--- NOTE | ~2017-02-28 | DS ---
Discharge Summary [facility] [address] [place]. [address] NAME: JONAS BRYSON : 42 STATUS : DIS IN PAT#: [id number] AGE: 76 ADM/REG DATE : 02/28/17 MR#: [id number] REPORT SERV DATE: 03/09/17 DICTATED BY: LILIANA SIMPSON DATE: 03/09/17 REPORT STATUS : Draft TRANSCRIBED BY: MODL DATE: 03/09/17 ADMISSION DATE: 02/28/2017 DISCHARGE DATE: 03/09/2017 DISCHARGE DIAGNOSES: 1. Acute hypoxic respiratory failure. The patient does not require oxygen at home on the day of discharge. Ambulating without the oxygen without any problem. 2. Diastolic dysfunction with both pleural effusion and also end-stage ovarian cancer. 3. Neutropenic fever, was treated with vancomycin and cefepime for seven days. 4. Pancytopenia secondary to chemotherapy. It is stable. 5. Stage IV ovarian cancer. 6. Hypertension. 7. Pleural effusion, multifactorial. 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 8. Chronic kidney disease on acute kidney disease. It has improved with diuretic treatment. Dr. Garner decided to continue torsemide 50 mg twice a day. CONSULTANTS: 1. Dr. Dixon. 2. Dr. Glass. HISTORY OF PRESENT ILLNESS: This is a 76-year-old female patient who does have advanced ovarian cancer with current chemotherapy and previous chemotherapy with kidney injury, came to the hospital with hypoxia. Please see dictated H and P. HOSPITAL COURSE: She was admitted to the hospital with volume overload and hypoxia and was treated with diuretics. Consultation was done to Dr. Dixon and Dr. Glass. The patient was not taking any diuretics prior to this admission. The patient was treated with IV diuretics and BiPAP at the beginning of the hospitalization. She did very well. She did have a good urine output with IV diuretics. Eventually, IV diuretics changed to torsemide 50 mg twice a day and she still had a good urine output. She still had a 1 L out and her kidney function has been stable. Therefore, Dr. Garner decided to continue the torsemide at 50 mg twice a day. She did not require any home oxygen use at this current time. She has been ambulating without the oxygen without desaturation for the last three days in the hospital. Did have one thoracentesis on the right side at the beginning of the hospitalization. Did not require any further treatments. She is making good urine output with the diuretic treatment and will be discharged to home in stable condition with continuing diuretic treatment. The patient is hoping to have another chemo tomorrow. She did have pancytopenia from the chemotherapy. It has been stable. Did not require any stimulation therapy. Overall, she is improved from the point of hypoxia, respiratory failure; however, she still has a poor prognosis because of this advanced ovarian cancer and probably that is the reason for hydrothorax along with renal failure. Her renal failure was Discharge Summary [address] [place]. [address] NAME: JONAS BRYSON : 42 STATUS : DIS IN PAT#: [id number] AGE: 76 ADM/REG DATE : 02/28/17 MR#: [id number] REPORT SERV DATE: 03/09/17 DICTATED BY: LILIANA SIMPSON DATE: 03/09/17 REPORT STATUS : Draft TRANSCRIBED BY: CAMMY DATE: 03/09/17 thought to be related with her chemotherapy injury. The patient's case was discussed with the patient and family members in the room including Dr. Matthias Zuluaga. Repeated x-ray showed improvement. Therefore, the patient will be discharged to home in stable condition. We continued torsemide 50 mg twice a day and sodium bicarb was increased to 1300 mg twice a day and Augmentin will be given for four more days after finishing the seven days of vancomycin and Maxipime treatment. TIME SPENT: More than 30 minutes in the room with the patient, education, and discussion about the discharge plan. DISPOSITION: The patient is discharged to home in stable condition. The patient wanted to have her port to be capped, accessed for tomorrow's chemotherapy. DICTATED BY: Sarah Dawson/CAMMY Liliana Simpson M.D. / [id number] CC: Liliana Simpson M.D.
--- NOTE | ~2017-02-28 | HP ---
History And Physical [place] [address] [facility] [place]. [address] NAME: JONAS BRYSON : 42 STATUS : [facility] [id number] AGE: 76 ADM/REG DATE : 02/28/17 MR#: [id number] REPORT SERV DATE: 02/28/17 DICTATED BY: YENNI MCCARTHY DATE: 02/28/17 REPORT STATUS : Draft TRANSCRIBED BY: MODMandy DATE: 02/28/17 DATE OF ADMISSION: 02/28/2017 HISTORY OF PRESENT ILLNESS: The patient is a very pleasant 76-year-old female, who presented to [facility] with the complaints of cough, shortness of breath, wheezing, being volume overloaded. She said that she had thoracentesis done recently for right-sided pleural effusion, but her breathing was still abnormal, and she was short of breath. Thoracentesis was ordered by Dr. Dixon. She said that she is coughing a lot. She is nauseous. She had vomiting. She said that she is hurting in her chest from cough. No fever. No diarrhea. No cardiac chest pain. No abdominal pain. Only from coughing. PAST MEDICAL HISTORY: Known for repeated thoracentesis. She had some bloody fluid recently on thoracentesis disease, as well as she was admitted to the hospital in January by Dr. Dixon for shortness of breath. She has a history of advanced recurrent ovarian cancer with ascites. Also, history of chemotherapy done recently per Dr. Dixon. Her past medical history includes hypertension, hypothyroidism, renal failure. She has chronic kidney disease and her creatinine since October is abnormal. It is 2.98. She has history of bilateral pleural effusions with repeated thoracentesis. Lately history of DVT, status post IVC filter placement; hypercholesterolemia. PAST SURGICAL HISTORY: Includes orthopedic surgery of her left ankle, IVC filter placement, cholecystectomy, appendectomy, cytoreductive surgery for ovarian cancer, and exploratory laparotomy. ALLERGIES: SHE IS ALLERGIC TO ATIVAN AND HYDROCODONE. FAMILY HISTORY: Negative for GI/ or breast malignancies. Negative for BRCA mutation. Mother has had heart problems. Father of old age. HOME MEDICATIONS: Include: Amlodipine 5 mg a day, vitamin D 50,000 units p.o. weekly, hydralazine 25 p.o. t.i.d., labetalol 400 p.o. b.i.d., levothyroxine 88 mcg a day, multivitamins one tablet daily, sodium bicarbonate 650 p.o. b.i.d., magnesium oxide one dose IV weekly and glutamine one capsule p.o. b.i.d. SOCIAL HISTORY: No smoking. No alcohol. No recreational drug use. at the bedside. REVIEW OF SYSTEMS: A 14-point review of system done and negative except what is stated in the history of present illness. PHYSICAL EXAMINATION: GENERAL: A thin female, not in acute distress. Now resting quietly, but had shortness of breath earlier. VITAL SIGNS: Blood pressure 143/66, temperature 99, heart rate 74, respiratory rate 22, oxygen saturation 90 on room air. HEENT: Head atraumatic, normocephalic. Conjunctivae clear. Pupils are equal and reactive History And Physical [address] [address] NAME: JONAS BRYSON : 42 STATUS : ADM IN [facility]#: [id number] AGE: 76 ADM/REG DATE : 02/28/17 MR#: [id number] REPORT SERV DATE: 02/28/17 DICTATED BY: YENNI MCCARTHY DATE: 02/28/17 REPORT STATUS : Draft TRANSCRIBED BY: CAMMY DATE: 02/28/17 to light and accommodation. Extraocular muscles are intact. NECK: Supple. Trachea is midline. No supraclavicular or cervical lymphadenopathy. LUNGS: Coarse breath sounds bilaterally with slightly increased respiratory effort. CARDIOVASCULAR SYSTEM: Regular rate and rhythm. Point of maximal impulse not displaced. ABDOMEN: Soft, mildly distended. There is anterior incisional hernia in place. EXTREMITIES: No clubbing, no cyanosis, no edema. SKIN: Normal color. Slightly decreased turgor. PSYCHIATRIC: Normal mood and affect. LABORATORY RESULTS: Sodium 140, potassium 5.9, chloride 111, carbon dioxide 22, BUN 54, creatinine 2.98, blood sugar 115, magnesium 2.2. Troponin 0.02. Her creatinine on 02/22 was 3.06 and in January was 2.95. White count 2.9, hemoglobin 11.6, hematocrit 34.4, platelet count 38,000. PT 14.5, INR 1.1, PTT 29.2. Chest x-ray showed cardiomegaly with small left-sided pleural effusion. EKG showed normal sinus rhythm with a rate of 76, possible left atrial enlargement, ST-T waves abnormalities, possibly consider lateral ischemia. BNP was 3672. ASSESSMENT AND PLAN: This is a 76-year-old female with an advanced recurrent ovarian cancer with recent chemotherapy who presented with dyspnea and status post thoracentesis on 02/21. 1. Dyspnea with cough secondary to volume overload in face of severely abnormal kidney function. 2. Chronic kidney disease, stage 4, but creatinine at the baseline. I discussed this with Dr. Glass, general surgeon extension associate. He is going to see the patient today. Before seeing the patient, he said that the patient's creatinine is at her baseline 2.98. It was at the same level when in October this year. He recommended to give Bumex 1 mg IV and he said that he will continue Bumex when he will see the patient. 3. Hyperkalemia. We will give her calcium gluconate intravenously, Bumex, as well as 10 units of regular insulin with D50 to decrease potassium level, and we will check potassium again 40 minutes after this treatment is given. 4. Thrombocytopenia. Related to recent chemotherapy as well as pancytopenia. We will monitor her platelet count. Right now, she does not have any gross bleeding. She had only nasal bleed before, but not now. 5. Cough, most likely secondary to volume overload. We will check her procalcitonin level as well, but the patient did not have fever although she is immunocompromised. We will monitor her closely for possible infection. The patient's reported that she had two episodes from C difficile diarrhea before and we will try to avoid antibiotics. We will give antibiotics only if there is any evidence of confirmed infection. 6. Overall prognosis is very bad. We will ask Dr. Dixon to come to see this patient. I will also order echocardiogram to make sure she does not have a pericardial effusion. Also regarding the patient's code status, the patient and discussed code status with me, and the patient does not want intubation and she does not want CPR. She does not want feeding tube. She is okay with oxygen masks and antibiotics as needed. My partner will see this patient starting tomorrow morning. History And Physical [address] [place]. [address] NAME: JONAS BRYSON : 42 STATUS : ADM IN PAT#: [id number] AGE: 76 ADM/REG DATE : 02/28/17 MR#: [id number] REPORT SERV DATE: 02/28/17 DICTATED BY: YENNI MCCARTHY DATE: 02/28/17 REPORT STATUS : Draft TRANSCRIBED BY: MODL DATE: 02/28/17 MG/MODL Yenni Mccarthy M.D. / [id number] CC: Gal Potts Jr, MD Rustam Oakley MD
--- NOTE | ~2017-02-28 | CN ---
Consultation Report [facility] [address] [place]. [address] NAME: JONAS WOODS : 42 STATUS : ADM IN [facility]#: [id number] AGE: 76 ADM/REG DATE : 02/28/17 MR#: [id number] REPORT SERV DATE: 02/28/17 DICTATED BY: LAMIN GLASS DATE: 02/28/17 REPORT STATUS : Draft TRANSCRIBED BY: MODL DATE: 02/28/17 DATE OF CONSULTATION: 02/28/2017 CONSULTING GROUP: [facility]. CHIEF COMPLAINT: Shortness of breath, possible lung interstitial edema, hypoxia, and hyperkalemia. HISTORY OF PRESENT ILLNESS: Ms. Woods is a 76-year-old female with stage 4 chronic kidney disease, patient of Dr. Valerio, who was brought to emergency room because of hypoxia, shortness of breath, and worsening congestive heart failure type symptoms. The patient has stage IV ovarian cancer, managed by Dr. Dixon and has stopped Avastin, 09/2016. She is now on Taxol. She was seen by partners in 01/2017. At that time, her creatinine had bumped up to 3.3. She also had thrombocytopenia at that time. There was concern of possibility of thrombotic microangiopathy. A biopsy was planned, but the platelet count got improved and the creatinine improved to 2.9. She seems lethargic, malaise. She is on 4 L O2 nasal cannula. Her brother is a retired family medicine physician, and he is the primary historian today. The patient has not had high potassium intake in her diet and has been off arbs, JONATHON inhibitor, or Aldactone. She is admitted by Dr. Smith who contacted me for assistance in diuretic management. PAST MEDICAL HISTORY: Thrombocytopenia; hyperlipidemia; hypertension; history of PE and DVT, status post IVC filter; hypothyroidism; stage IV ovarian cancer, on Taxol, patient of Dr. Dixon; and CKD, stage 4, patient of Dr. Valerio. FAMILY HISTORY: Negative for kidney disease. 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 Lives alone in [place]. No smoking. Is . REVIEW OF SYSTEMS: Positive for fatigue, poor appetite, volume depletion, shortness of breath, cough, erythema, weakness, deconditioning. All other review of systems is negative at this time. PHYSICAL EXAMINATION: VITAL SIGNS: Temperature 99.0, pulse is 74, blood pressure 143/66, 90% O2 saturation on 4 L nasal cannula. GENERAL: She is a thin framed, elderly female, looks older than stated age. EYES: Extraocular movements intact. Sunken eyelids. ENT: Dry oropharynx. No facial droop. LYMPH: No supraclavicular or cervical lymphadenopathy that I could appreciate. HEART: S1, S2. Regular. LUNGS: Bilateral rhonchi and crackles. There is a cough. Shallow breath. ABDOMEN: Soft and decreased bowel sounds. EXTREMITIES: Mild left lower extremity edema, and has a history of injury to that left leg. Consultation Report [address] [place] [place] [address] NAME: JONAS WOODS : 42 STATUS : ADM IN [facility]#: [id number] AGE: 76 ADM/REG DATE : 02/28/17 MR#: [id number] REPORT SERV DATE: 02/28/17 DICTATED BY: LAMIN GLASS DATE: 02/28/17 REPORT STATUS : Draft TRANSCRIBED BY: CAMMY DATE: 02/28/17 PSYCH: Alert and oriented x2, malaise. SKIN: Pallor, but has also erythema on the hands and various places, but no obvious lesions. LABORATORY DATA: Chest x-ray AP and lateral, pending at this time. Sodium 140, potassium 5.9, chloride 111, bicarb 22, BUN 54, creatinine 2.98, glucose 115, calcium 8.0, magnesium 2.2. Troponin I of 0.02. BNP 3672. White count 2.9, hemoglobin 11.6, hematocrit 34.4, and platelets 38. ASSESSMENT/PLAN: Ms. Woods is a 76-year-old female with stage IV ovarian cancer, shortness of breath, hypoxia, chronic thrombocytopenia, and now with hypoxia, cough, hyperkalemia and known chronic kidney disease, stage 4. [address] Valerio. 1. Renal: Due to the fact that she has chronic kidney disease, stage 4, patient of Dr. Valerio; I think her diuretic requirements may be higher. Her creatinine currently is 2.98. She is around her baseline. 2. Hyperkalemia: This has been treated in the ER with insulin D50, Kayexalate and calcium gluconate. 3. Edema: Chest x-ray is pending, but with her increased BNP and her lung exam, it appears that she may have interstitial pulmonary edema. I have ordered Bumex 2 mg IV q.12 hours x4 doses. Hold on any IV fluids to help replete intravascular depletion at this time. She may require gentle fluids later in her hospital course. 4. Thrombocytopenia: I doubt her reasoning is thrombotic microangiopathy, more likely idiopathic or chemotherapy related. 5. Stage IV ovarian cancer: The patient is seen by Dr. Dixon. Currently on Taxol and the dose is due this Thursday here at [facility]. MARÍA/CAMMY Lamin Glass M.D. / [id number] CC: Gal Potts Jr, MD
[2017-02-28 14:59] LABS: BASOPHILS 0.3 %; BASOPHILS ABSOLUTE 0.01 10/3/uL (0.0-0.16); EOSINOPHILS 3.1 %; EOSINOPHILS ABSOLUTE 0.09 10/3/uL (0.0-0.53); HEMATOCRIT 34.4 % (36.0-48.0); HEMOGLOBIN 11.6 g/dL (12.0-16.0); LYMPHOCYTES 6.6 %; LYMPHOCYTES ABSOLUTE 0.19 10/3/uL (0.67-4.30); MEAN CORPUS HGB CONC 33.7 g/dL (32.0-36.0); MEAN CORPUSCULAR HEMOGLOB 31.3 pg (26.0-34.0); MEAN CORPUSCULAR VOLUME 92.7 fL (80-100); MEAN PLATELET VOLUME 10.6 fL (9.2-13.0); MONOCYTES ABSOLUTE 0.03 10/3/uL (0.21-1.20); NEUTROPHILS ABSOLUTE 2.56 10/3/uL (2.02-8.40); RBC DISTRIBUTION WIDTH 16.7 % (12.0-16.0); RED CELL COUNT 3.71 10/6/uL (4.0-5.6); WHITE BLOOD CELLS 2.9 10/3/uL (4.5-10.5)
[2017-02-28 15:00] LABS: PLATELET COUNT 38 10/3/uL (150-400)
[2017-02-28 15:01] LABS: MANUAL DIFF NO %
[2017-02-28 15:14] LABS: BUN (BLOOD UREA NITROGEN) 54 MG/DL (6-23); CHEST PAIN PROFILE TAT 0 Hrs 19 Mins; CHLORIDE, SERUM 111 MMOL/L (96-112); CO2 (CARBON DIOXIDE) 22 MMOL/L (24-34); CREATININE 2.98 MG/DL (0.55-1.02); GFR AFRICAN AMERICAN 17 ML/MIN (>=60); GFR NON AFRICAN AMERICAN 15 ML/MIN (>=60); GLUCOSE, SERUM 115 MG/DL (60-99); POTASSIUM, SERUM 5.9 MMOL/L (3.5-5.3); SODIUM, SERUM 140 MMOL/L (135-148); TROPONIN I 0.02 NG/ML (<0.05)
[2017-02-28 15:16] LABS: INTERNATIONAL NORMAL RATI 1.1 UNITS (-); PARTIAL THROMBO TIME 29.2 SEC (22.5-37.2); PROTIME (NOT ORD) 14.5 SEC (12.0-14.5)
[~2017-02-28 16:32] MED LIST changes: +GLUTAMINE PO; +LEVOTHYROXIN88 MCG PO; +MULTIVIT/MIN PO; +NORV5 PO; +VITD PO
[2017-02-28 22:52] LABS: POTASSIUM, SERUM 4.6 MMOL/L (3.5-5.3)
[2017-02-28 23:17] LABS: PROCALCITONIN 0.89 ng/mL (<0.5)
[2017-03-01 04:31] LABS: BASOPHILS 0 %; EOSINOPHILS 0.4 %; EOSINOPHILS ABSOLUTE 0.01 10/3/uL (0.0-0.53); HEMOGLOBIN 11.3 g/dL (12.0-16.0); IMMATURE GRANULOCYTES 0.4 %; IMMATURE GRANULOCYTES ABSOLUTE 0.01 10/3/uL (0.0-0.11); LYMPHOCYTES 7.6 %; LYMPHOCYTES ABSOLUTE 0.17 10/3/uL (0.67-4.30); MEAN CORPUS HGB CONC 34.2 g/dL (32.0-36.0); MEAN CORPUSCULAR HEMOGLOB 31.9 pg (26.0-34.0); MEAN CORPUSCULAR VOLUME 93.2 fL (80-100); MEAN PLATELET VOLUME 10.7 fL (9.2-13.0); MONOCYTES 1.3 %; MONOCYTES ABSOLUTE 0.03 10/3/uL (0.21-1.20); NEUTROPHILS 90.3 %; NEUTROPHILS ABSOLUTE 2.01 10/3/uL (2.02-8.40); RBC DISTRIBUTION WIDTH 16.7 % (12.0-16.0); RED CELL COUNT 3.54 10/6/uL (4.0-5.6)
[2017-03-01 04:32] LABS: A/G RATIO 1.1 (0.7-1.9); ALBUMIN 3.1 G/DL (3.5-5.0); BUN (BLOOD UREA NITROGEN) 57 MG/DL (6-23); CALCIUM, SERUM 8.1 MG/DL (8.5-10.4); CHLORIDE, SERUM 110 MMOL/L (96-112); CO2 (CARBON DIOXIDE) 23 MMOL/L (24-34); CREATININE 3.18 MG/DL (0.55-1.02); GFR AFRICAN AMERICAN 16 ML/MIN (>=60); GFR NON AFRICAN AMERICAN 14 ML/MIN (>=60); GLOBULIN 2.7 G/DL (2.5-4.1); GLUCOSE, SERUM 124 MG/DL (60-99); PLATELET COUNT 32 10/3/uL (150-400); POTASSIUM, SERUM 4.4 MMOL/L (3.5-5.3); SGOT(AST) 16 U/L (5-40); SGPT(ALT) 13 U/L (5-65); SODIUM, SERUM 141 MMOL/L (135-148); TOTAL PROTEIN 5.8 G/DL (6.0-8.5); WHITE BLOOD CELLS 2.2 10/3/uL (4.5-10.5)
[2017-03-01 04:33] LABS: ALKALINE PHOSPHATASE 59 U/L (45-117); MANUAL DIFF NO %; TOTAL BILIRUBIN 1.3 MG/DL (0-1.2)
[2017-03-01 05:30] LABS: RBC MORPHOLOGY NORM (NORMAL)
[2017-03-01 09:07] LABS: ALLENS TEST Pos; BE (BASE EXCESS) -5.2 MEQ/L (0 +/- 2.5); CARBOXYHEMOGLOBIN 0.3 % (0-3); DEVICE HFNC; HCO3 (ACTUAL BICARBONATE) 18.1 MEQ/L (23-27); INSTRUMENT SERIAL # 35151; METHEMOGLOBIN 0.9 % (0-3); O2 CONTENT 16.4 VOL% (18-24); PCO2 (CO2 TENSION) 29 MMHG (35-45); PO2 (O2 TENSION) 105 MMHG (79-93); SAMPLE Arterial; pH 7.42 (7.37-7.43)
[2017-03-01 16:36] LABS: ASCORBIC ACID (UR NOT ORDER) NEG (NEG); BILIRUBIN, URINE NEGATIVE (NEG); KETONE, URINE NEGATIVE (NEG); LEUKOCYTE ESTERASE(NOT OR NEG (NEG); WBC (NOT ORDERED) (RFLEX) 1 (0-5)
[2017-03-01 22:49] LABS: BE (BASE EXCESS) -5.4 MEQ/L (0 +/- 2.5); HCO3 (ACTUAL BICARBONATE) 18.2 MEQ/L (23-27); HEMOBLOGIN CONTENT 11.7 G/DL (12-16); INSTRUMENT SERIAL # 35151; METHEMOGLOBIN 0.8 % (0-3); O2 CONTENT 16.4 VOL% (18-24); OPERATOR ID 32193; PCO2 (CO2 TENSION) 29 MMHG (35-45); PO2 (O2 TENSION) 157 MMHG (79-93); SAMPLE Arterial; pH 7.41 (7.37-7.43)
[2017-03-01 22:50] LABS: ALLENS TEST Pos
[2017-03-02 05:32] LABS: HEMATOCRIT 32.4 % (36.0-48.0); HEMOGLOBIN 10.9 g/dL (12.0-16.0); MEAN CORPUS HGB CONC 33.6 g/dL (32.0-36.0); MEAN CORPUSCULAR HEMOGLOB 31.6 pg (26.0-34.0); MEAN CORPUSCULAR VOLUME 93.9 fL (80-100); MEAN PLATELET VOLUME 11.7 fL (9.2-13.0); RBC DISTRIBUTION WIDTH 16.7 % (12.0-16.0); RED CELL COUNT 3.45 10/6/uL (4.0-5.6)
[2017-03-02 05:33] LABS: MANUAL DIFF YES %; PLATELET COUNT 33 10/3/uL (150-400); WHITE BLOOD CELLS 1.7 10/3/uL (4.5-10.5)
[2017-03-02 05:46] LABS: BUN (BLOOD UREA NITROGEN) 60 MG/DL (6-23); CHLORIDE, SERUM 108 MMOL/L (96-112); CO2 (CARBON DIOXIDE) 24 MMOL/L (24-34); CREATININE 3.22 MG/DL (0.55-1.02); GFR AFRICAN AMERICAN 16 ML/MIN (>=60); GFR NON AFRICAN AMERICAN 13 ML/MIN (>=60); GLUCOSE, SERUM 100 MG/DL (60-99); POTASSIUM, SERUM 4.1 MMOL/L (3.5-5.3); SODIUM, SERUM 140 MMOL/L (135-148)
[2017-03-02 06:10] LABS: BAND NEUTROPHILS 8 %; BASOPHILS 2 %; BASOPHILS ABSOLUTE (CALC) 0.03 10/3/uL (0.0-0.16); LYMPHOCYTES 8 %; LYMPHOCYTES ABSOLUTE (CALC) 0.14 10/3/uL (0.67-4.30); NEUTROPHILS ABSOLUTE (CALC) 1.53 10/3/uL (2.02-8.40); SCHISTOCYTES OCC (0-2/OIF); SEGMENTED NEUTROPHIL (0) 82 %; TEARDROP SHAPED RBCS FEW (3-10/OIF); TOTAL NUCLEATED CELLS 100
[2017-03-02 06:36] LABS: PROCALCITONIN 2.05 ng/mL (<0.5)
[2017-03-03 05:54] LABS: HEMATOCRIT 31.2 % (36.0-48.0); HEMOGLOBIN 10.7 g/dL (12.0-16.0); MEAN CORPUS HGB CONC 34.3 g/dL (32.0-36.0); MEAN CORPUSCULAR HEMOGLOB 31.3 pg (26.0-34.0); MEAN CORPUSCULAR VOLUME 91.2 fL (80-100); RBC DISTRIBUTION WIDTH 16.4 % (12.0-16.0); RED CELL COUNT 3.42 10/6/uL (4.0-5.6)
[2017-03-03 05:57] LABS: BUN (BLOOD UREA NITROGEN) 57 MG/DL (6-23); CALCIUM, SERUM 7.8 MG/DL (8.5-10.4); CHLORIDE, SERUM 106 MMOL/L (96-112); CO2 (CARBON DIOXIDE) 24 MMOL/L (24-34); CREATININE 2.99 MG/DL (0.55-1.02); GFR AFRICAN AMERICAN 17 ML/MIN (>=60); GFR NON AFRICAN AMERICAN 15 ML/MIN (>=60); GLUCOSE, SERUM 83 MG/DL (60-99); SODIUM, SERUM 139 MMOL/L (135-148)
[2017-03-03 05:58] LABS: POTASSIUM, SERUM 3.2 MMOL/L (3.5-5.3)
[2017-03-03 06:14] LABS: WHITE BLOOD CELLS 1.7 10/3/uL (4.5-10.5)
[2017-03-03 06:15] LABS: MANUAL DIFF YES %; PLATELET COUNT 37 10/3/uL (150-400)
[2017-03-03 06:59] LABS: BAND NEUTROPHILS 18 %; IMMATURE GRANS ABSOLUTE (CALC) 0.03 10/3/uL (0.0-0.11); LYMPHOCYTES 16 %; LYMPHOCYTES ABSOLUTE (CALC) 0.27 10/3/uL (0.67-4.30); MONOCYTES 14 %; MONOCYTES ABSOLUTE (CALC) 0.24 10/3/uL (0.21-1.20); MYELOCYTES 2 %; NEUTROPHILS ABSOLUTE (CALC) 1.16 10/3/uL (2.02-8.40); SEGMENTED NEUTROPHIL (0) 50 %; TOTAL NUCLEATED CELLS 100
[2017-03-03 07:00] LABS: HELMET CELLS OCC (0-2/OIF)
[2017-03-04 04:21] LABS: HEMATOCRIT 31.6 % (36.0-48.0); HEMOGLOBIN 10.9 g/dL (12.0-16.0); MEAN CORPUS HGB CONC 34.5 g/dL (32.0-36.0); MEAN CORPUSCULAR HEMOGLOB 31.6 pg (26.0-34.0); MEAN CORPUSCULAR VOLUME 91.6 fL (80-100); MEAN PLATELET VOLUME 11.6 fL (9.2-13.0); RBC DISTRIBUTION WIDTH 16.1 % (12.0-16.0); RED CELL COUNT 3.45 10/6/uL (4.0-5.6)
[2017-03-04 04:22] LABS: MANUAL DIFF YES %; PLATELET COUNT 42 10/3/uL (150-400); WHITE BLOOD CELLS 1.9 10/3/uL (4.5-10.5)
[2017-03-04 04:31] LABS: BUN (BLOOD UREA NITROGEN) 55 MG/DL (6-23); CALCIUM, SERUM 7.6 MG/DL (8.5-10.4); CHLORIDE, SERUM 106 MMOL/L (96-112); CO2 (CARBON DIOXIDE) 25 MMOL/L (24-34); CREATININE 2.63 MG/DL (0.55-1.02); GFR AFRICAN AMERICAN 20 ML/MIN (>=60); GFR NON AFRICAN AMERICAN 17 ML/MIN (>=60); GLUCOSE, SERUM 82 MG/DL (60-99); POTASSIUM, SERUM 3.4 MMOL/L (3.5-5.3); SGOT(AST) 21 U/L (5-40); SGPT(ALT) 11 U/L (5-65); SODIUM, SERUM 140 MMOL/L (135-148); TOTAL PROTEIN 5.1 G/DL (6.0-8.5)
[2017-03-04 04:35] LABS: A/G RATIO 0.8 (0.7-1.9); ALBUMIN 2.2 G/DL (3.5-5.0); ALKALINE PHOSPHATASE 43 U/L (45-117); GLOBULIN 2.9 G/DL (2.5-4.1); PHOSPHORUS, SERUM 3.1 MG/DL (2.5-4.5); TOTAL BILIRUBIN 0.8 MG/DL (0-1.2)
[2017-03-04 05:02] LABS: BAND NEUTROPHILS 2 %; EOSINOPHILS 1 %; EOSINOPHILS ABSOLUTE (CALC) 0.02 10/3/uL (0.0-0.53); LYMPHOCYTES 23 %; LYMPHOCYTES ABSOLUTE (CALC) 0.44 10/3/uL (0.67-4.30); MONOCYTES 4 %; MONOCYTES ABSOLUTE (CALC) 0.08 10/3/uL (0.21-1.20); NEUTROPHILS ABSOLUTE (CALC) 1.37 10/3/uL (2.02-8.40); SEGMENTED NEUTROPHIL (0) 70 %; TOTAL NUCLEATED CELLS 100
[2017-03-04 05:04] LABS: PLATELET ESTIMATE DEC (ADEQUATE); SPHEROCYTES FEW (3-10/OIF)
[2017-03-04 08:36] LABS: HEMOGLOBIN 11.2 g/dL (12.0-16.0); MEAN CORPUS HGB CONC 33.9 g/dL (32.0-36.0); MEAN CORPUSCULAR HEMOGLOB 31.2 pg (26.0-34.0); MEAN CORPUSCULAR VOLUME 91.9 fL (80-100); MEAN PLATELET VOLUME 11.5 fL (9.2-13.0); PLATELET COUNT 41 10/3/uL (150-400); RBC DISTRIBUTION WIDTH 16.1 % (12.0-16.0); RED CELL COUNT 3.59 10/6/uL (4.0-5.6)
[2017-03-04 08:37] LABS: MANUAL DIFF YES %
[2017-03-04 09:42] LABS: EOSINOPHILS 2 %; EOSINOPHILS ABSOLUTE (CALC) 0.04 10/3/uL (0.0-0.53); LYMPHOCYTES 17 %; LYMPHOCYTES ABSOLUTE (CALC) 0.34 10/3/uL (0.67-4.30); MONOCYTES 8 %; MONOCYTES ABSOLUTE (CALC) 0.16 10/3/uL (0.21-1.20); NEUTROPHILS ABSOLUTE (CALC) 1.46 10/3/uL (2.02-8.40); RBC MORPHOLOGY NORM (NORMAL); SEGMENTED NEUTROPHIL (0) 73 %; TOTAL NUCLEATED CELLS 100
[2017-03-05 04:40] LABS: BASOPHILS 1.4 %; BASOPHILS ABSOLUTE 0.03 10/3/uL (0.0-0.16); EOSINOPHILS 3.4 %; EOSINOPHILS ABSOLUTE 0.07 10/3/uL (0.0-0.53); HEMATOCRIT 31.7 % (36.0-48.0); HEMOGLOBIN 10.7 g/dL (12.0-16.0); IMMATURE GRANULOCYTES 1.4 %; IMMATURE GRANULOCYTES ABSOLUTE 0.03 10/3/uL (0.0-0.11); LYMPHOCYTES 21.3 %; LYMPHOCYTES ABSOLUTE 0.44 10/3/uL (0.67-4.30); MEAN CORPUS HGB CONC 33.8 g/dL (32.0-36.0); MEAN CORPUSCULAR HEMOGLOB 31.1 pg (26.0-34.0); MEAN CORPUSCULAR VOLUME 92.2 fL (80-100); MEAN PLATELET VOLUME 11.6 fL (9.2-13.0); MONOCYTES 16.9 %; MONOCYTES ABSOLUTE 0.35 10/3/uL (0.21-1.20); NEUTROPHILS 55.6 %; NEUTROPHILS ABSOLUTE 1.15 10/3/uL (2.02-8.40); RBC DISTRIBUTION WIDTH 16.3 % (12.0-16.0); RED CELL COUNT 3.44 10/6/uL (4.0-5.6)
[2017-03-05 04:42] LABS: PLATELET COUNT 56 10/3/uL (150-400); WHITE BLOOD CELLS 2.1 10/3/uL (4.5-10.5)
[2017-03-05 04:43] LABS: MANUAL DIFF NO %
[2017-03-05 04:53] LABS: ALBUMIN 2.3 G/DL (3.5-5.0); BUN (BLOOD UREA NITROGEN) 57 MG/DL (6-23); CALCIUM, SERUM 7.8 MG/DL (8.5-10.4); CHLORIDE, SERUM 103 MMOL/L (96-112); CO2 (CARBON DIOXIDE) 26 MMOL/L (24-34); CREATININE 2.44 MG/DL (0.55-1.02); GFR AFRICAN AMERICAN 22 ML/MIN (>=60); GFR NON AFRICAN AMERICAN 19 ML/MIN (>=60); GLUCOSE, SERUM 87 MG/DL (60-99); PHOSPHORUS, SERUM 2.3 MG/DL (2.5-4.5); POTASSIUM, SERUM 3.7 MMOL/L (3.5-5.3); SODIUM, SERUM 138 MMOL/L (135-148)
[2017-03-05 05:56] LABS: PLATELET ESTIMATE DEC (ADEQUATE)
[2017-03-05 05:57] LABS: HELMET CELLS OCC (0-2/OIF)
[2017-03-05 05:58] LABS: ANISOCYTOSIS 1+ (5-10/OIF) (0-5/OIF)
[2017-03-05 11:37] LABS: HEMATOCRIT 31.7 % (36.0-48.0); HEMOGLOBIN 10.9 g/dL (12.0-16.0); MEAN CORPUS HGB CONC 34.4 g/dL (32.0-36.0); MEAN CORPUSCULAR HEMOGLOB 31.3 pg (26.0-34.0); MEAN CORPUSCULAR VOLUME 91.1 fL (80-100); MEAN PLATELET VOLUME 10.7 fL (9.2-13.0); PLATELET COUNT 56 10/3/uL (150-400); RBC DISTRIBUTION WIDTH 16.5 % (12.0-16.0); RED CELL COUNT 3.48 10/6/uL (4.0-5.6)
[2017-03-05 11:39] LABS: MANUAL DIFF YES %
[2017-03-05 11:59] LABS: EOSINOPHILS 4 %; EOSINOPHILS ABSOLUTE (CALC) 0.08 10/3/uL (0.0-0.53); LYMPHOCYTES 21 %; LYMPHOCYTES ABSOLUTE (CALC) 0.42 10/3/uL (0.67-4.30); MONOCYTES 11 %; MONOCYTES ABSOLUTE (CALC) 0.22 10/3/uL (0.21-1.20); NEUTROPHILS ABSOLUTE (CALC) 1.28 10/3/uL (2.02-8.40); RBC MORPHOLOGY NORM (NORMAL); SEGMENTED NEUTROPHIL (0) 64 %; TOTAL NUCLEATED CELLS 100
[2017-03-05 12:00] LABS: PLATELET ESTIMATE DEC (ADEQUATE)
[2017-03-06 04:19] LABS: BASOPHILS 1.4 %; BASOPHILS ABSOLUTE 0.03 10/3/uL (0.0-0.16); EOSINOPHILS ABSOLUTE 0.11 10/3/uL (0.0-0.53); HEMATOCRIT 30.2 % (36.0-48.0); HEMOGLOBIN 10.3 g/dL (12.0-16.0); IMMATURE GRANULOCYTES 2.3 %; IMMATURE GRANULOCYTES ABSOLUTE 0.05 10/3/uL (0.0-0.11); LYMPHOCYTES 23.2 %; LYMPHOCYTES ABSOLUTE 0.51 10/3/uL (0.67-4.30); MEAN CORPUS HGB CONC 34.1 g/dL (32.0-36.0); MEAN CORPUSCULAR HEMOGLOB 31.6 pg (26.0-34.0); MEAN CORPUSCULAR VOLUME 92.6 fL (80-100); MEAN PLATELET VOLUME 10.8 fL (9.2-13.0); MONOCYTES 20.9 %; MONOCYTES ABSOLUTE 0.46 10/3/uL (0.21-1.20); NEUTROPHILS 47.2 %; NEUTROPHILS ABSOLUTE 1.04 10/3/uL (2.02-8.40); PLATELET COUNT 64 10/3/uL (150-400); RBC DISTRIBUTION WIDTH 16.4 % (12.0-16.0); RED CELL COUNT 3.26 10/6/uL (4.0-5.6)
[2017-03-06 04:22] LABS: MANUAL DIFF NO %; WHITE BLOOD CELLS 2.2 10/3/uL (4.5-10.5)
[2017-03-06 04:32] LABS: A/G RATIO 0.9 (0.7-1.9); ALBUMIN 2.6 G/DL (3.5-5.0); ALKALINE PHOSPHATASE 46 U/L (45-117); BUN (BLOOD UREA NITROGEN) 53 MG/DL (6-23); CALCIUM, SERUM 7.9 MG/DL (8.5-10.4); CHLORIDE, SERUM 105 MMOL/L (96-112); CO2 (CARBON DIOXIDE) 28 MMOL/L (24-34); CREATININE 2.52 MG/DL (0.55-1.02); GFR AFRICAN AMERICAN 21 ML/MIN (>=60); GFR NON AFRICAN AMERICAN 18 ML/MIN (>=60); GLOBULIN 2.9 G/DL (2.5-4.1); GLUCOSE, SERUM 87 MG/DL (60-99); POTASSIUM, SERUM 3.6 MMOL/L (3.5-5.3); SGOT(AST) 21 U/L (5-40); SGPT(ALT) 15 U/L (5-65); SODIUM, SERUM 139 MMOL/L (135-148); TOTAL BILIRUBIN 1.3 MG/DL (0-1.2); TOTAL PROTEIN 5.5 G/DL (6.0-8.5)
[2017-03-06 04:40] LABS: BAND NEUTROPHILS 2 %; BASOPHILS 2 %; BASOPHILS ABSOLUTE (CALC) 0.04 10/3/uL (0.0-0.16); BURR CELLS 1+ (3-10/OIF) (0-2/OIF); EOSINOPHILS 5 %; EOSINOPHILS ABSOLUTE (CALC) 0.11 10/3/uL (0.0-0.53); HELMET CELLS OCC (0-2/OIF); IMMATURE GRANS ABSOLUTE (CALC) 0.07 10/3/uL (0.0-0.11); LYMPHOCYTES 18 %; METAMYELOCYTES 1 %; MONOCYTES 15 %; MONOCYTES ABSOLUTE (CALC) 0.33 10/3/uL (0.21-1.20); MYELOCYTES 2 %; NEUTROPHILS ABSOLUTE (CALC) 1.25 10/3/uL (2.02-8.40); PLATELET ESTIMATE DEC (ADEQUATE); SEGMENTED NEUTROPHIL (0) 55 %; TEARDROP SHAPED RBCS OCC (0-2/OIF); TOTAL NUCLEATED CELLS 100
[2017-03-06 11:15] LABS: HEMATOCRIT 29.3 % (36.0-48.0); MEAN CORPUS HGB CONC 34.1 g/dL (32.0-36.0); MEAN CORPUSCULAR HEMOGLOB 31.4 pg (26.0-34.0); MEAN CORPUSCULAR VOLUME 92.1 fL (80-100); MEAN PLATELET VOLUME 9.9 fL (9.2-13.0); PLATELET COUNT 60 10/3/uL (150-400); RBC DISTRIBUTION WIDTH 16.6 % (12.0-16.0); RED CELL COUNT 3.18 10/6/uL (4.0-5.6); WHITE BLOOD CELLS 2.2 10/3/uL (4.5-10.5)
[2017-03-06 11:16] LABS: MANUAL DIFF YES %
[2017-03-06 11:40] LABS: BAND NEUTROPHILS 6 %; EOSINOPHILS 3 %; EOSINOPHILS ABSOLUTE (CALC) 0.07 10/3/uL (0.0-0.53); LYMPHOCYTES 25 %; LYMPHOCYTES ABSOLUTE (CALC) 0.55 10/3/uL (0.67-4.30); MONOCYTES 6 %; MONOCYTES ABSOLUTE (CALC) 0.13 10/3/uL (0.21-1.20); NEUTROPHILS ABSOLUTE (CALC) 1.45 10/3/uL (2.02-8.40); PLATELET ESTIMATE DEC (ADEQUATE); RBC MORPHOLOGY NORM (NORMAL); SEGMENTED NEUTROPHIL (0) 60 %; TOTAL NUCLEATED CELLS 100
[2017-03-07 04:59] LABS: HEMOGLOBIN 10.7 g/dL (12.0-16.0); MEAN CORPUSCULAR HEMOGLOB 30.7 pg (26.0-34.0); MEAN CORPUSCULAR VOLUME 93.1 fL (80-100); MEAN PLATELET VOLUME 10.7 fL (9.2-13.0); PLATELET COUNT 76 10/3/uL (150-400); RBC DISTRIBUTION WIDTH 16.5 % (12.0-16.0); RED CELL COUNT 3.48 10/6/uL (4.0-5.6); WHITE BLOOD CELLS 2.7 10/3/uL (4.5-10.5)
[2017-03-07 05:07] LABS: HEMATOCRIT 32.4 % (36.0-48.0); MANUAL DIFF YES %
[2017-03-07 05:15] LABS: ALBUMIN 3.1 G/DL (3.5-5.0); BUN (BLOOD UREA NITROGEN) 55 MG/DL (6-23); CALCIUM, SERUM 8.5 MG/DL (8.5-10.4); CHLORIDE, SERUM 104 MMOL/L (96-112); CO2 (CARBON DIOXIDE) 28 MMOL/L (24-34); CREATININE 2.39 MG/DL (0.55-1.02); GFR AFRICAN AMERICAN 22 ML/MIN (>=60); GFR NON AFRICAN AMERICAN 19 ML/MIN (>=60); GLUCOSE, SERUM 92 MG/DL (60-99); PHOSPHORUS, SERUM 2.2 MG/DL (2.5-4.5); POTASSIUM, SERUM 3.8 MMOL/L (3.5-5.3); SODIUM, SERUM 139 MMOL/L (135-148)
[2017-03-07 06:11] LABS: BAND NEUTROPHILS 6 %; EOSINOPHILS 8 %; EOSINOPHILS ABSOLUTE (CALC) 0.22 10/3/uL (0.0-0.53); LYMPHOCYTES 16 %; LYMPHOCYTES ABSOLUTE (CALC) 0.43 10/3/uL (0.67-4.30); MONOCYTES 18 %; MONOCYTES ABSOLUTE (CALC) 0.49 10/3/uL (0.21-1.20); NEUTROPHILS ABSOLUTE (CALC) 1.57 10/3/uL (2.02-8.40); SEGMENTED NEUTROPHIL (0) 52 %; TOTAL NUCLEATED CELLS 100
[2017-03-07 06:12] LABS: PLATELET ESTIMATE DEC (ADEQUATE); RBC MORPHOLOGY NORM (NORMAL)
[2017-03-07 10:34] LABS: BASOPHILS 2.7 %; BASOPHILS ABSOLUTE 0.07 10/3/uL (0.0-0.16); EOSINOPHILS 5.3 %; EOSINOPHILS ABSOLUTE 0.14 10/3/uL (0.0-0.53); HEMOGLOBIN 9.7 g/dL (12.0-16.0); IMMATURE GRANULOCYTES 2.3 %; IMMATURE GRANULOCYTES ABSOLUTE 0.06 10/3/uL (0.0-0.11); LYMPHOCYTES 25.2 %; LYMPHOCYTES ABSOLUTE 0.66 10/3/uL (0.67-4.30); MEAN CORPUS HGB CONC 33.3 g/dL (32.0-36.0); MEAN CORPUSCULAR HEMOGLOB 30.8 pg (26.0-34.0); MEAN CORPUSCULAR VOLUME 92.4 fL (80-100); MEAN PLATELET VOLUME 10.4 fL (9.2-13.0); MONOCYTES 15.3 %; NEUTROPHILS 49.2 %; NEUTROPHILS ABSOLUTE 1.29 10/3/uL (2.02-8.40); PLATELET COUNT 73 10/3/uL (150-400); RBC DISTRIBUTION WIDTH 16.6 % (12.0-16.0); RED CELL COUNT 3.15 10/6/uL (4.0-5.6); WHITE BLOOD CELLS 2.6 10/3/uL (4.5-10.5)
[2017-03-07 10:38] LABS: HEMATOCRIT 29.1 % (36.0-48.0); MANUAL DIFF NO %
[2017-03-07 11:04] LABS: PLATELET ESTIMATE DEC (ADEQUATE)
[2017-03-07 11:05] LABS: RBC MORPHOLOGY NORM (NORMAL)
[2017-03-08 05:09] LABS: BASOPHILS 1.7 %; BASOPHILS ABSOLUTE 0.05 10/3/uL (0.0-0.16); EOSINOPHILS 5.4 %; EOSINOPHILS ABSOLUTE 0.16 10/3/uL (0.0-0.53); HEMATOCRIT 30.5 % (36.0-48.0); HEMOGLOBIN 10.1 g/dL (12.0-16.0); IMMATURE GRANULOCYTES ABSOLUTE 0.09 10/3/uL (0.0-0.11); LYMPHOCYTES 28.9 %; LYMPHOCYTES ABSOLUTE 0.86 10/3/uL (0.67-4.30); MEAN CORPUS HGB CONC 33.1 g/dL (32.0-36.0); MEAN CORPUSCULAR HEMOGLOB 31.1 pg (26.0-34.0); MEAN CORPUSCULAR VOLUME 93.8 fL (80-100); MEAN PLATELET VOLUME 9.8 fL (9.2-13.0); MONOCYTES 18.5 %; MONOCYTES ABSOLUTE 0.55 10/3/uL (0.21-1.20); NEUTROPHILS 42.5 %; NEUTROPHILS ABSOLUTE 1.27 10/3/uL (2.02-8.40); PLATELET COUNT 83 10/3/uL (150-400); RBC DISTRIBUTION WIDTH 16.6 % (12.0-16.0); RED CELL COUNT 3.25 10/6/uL (4.0-5.6)
[2017-03-08 05:10] LABS: MANUAL DIFF NO %
[2017-03-08 05:24] LABS: CALCIUM, SERUM 8.6 MG/DL (8.5-10.4); CHLORIDE, SERUM 103 MMOL/L (96-112); CO2 (CARBON DIOXIDE) 31 MMOL/L (24-34); CREATININE 2.61 MG/DL (0.55-1.02); GFR AFRICAN AMERICAN 20 ML/MIN (>=60); GFR NON AFRICAN AMERICAN 17 ML/MIN (>=60); PHOSPHORUS, SERUM 2.1 MG/DL (2.5-4.5); POTASSIUM, SERUM 3.9 MMOL/L (3.5-5.3); SODIUM, SERUM 140 MMOL/L (135-148)
[2017-03-08 05:26] LABS: BUN (BLOOD UREA NITROGEN) 60 MG/DL (6-23); GLUCOSE, SERUM 120 MG/DL (60-99)
[2017-03-09 05:20] LABS: HEMATOCRIT 33.1 % (36.0-48.0); HEMOGLOBIN 10.9 g/dL (12.0-16.0); MEAN CORPUS HGB CONC 32.9 g/dL (32.0-36.0); MEAN CORPUSCULAR HEMOGLOB 30.9 pg (26.0-34.0); MEAN CORPUSCULAR VOLUME 93.8 fL (80-100); MEAN PLATELET VOLUME 10.1 fL (9.2-13.0); PLATELET COUNT 94 10/3/uL (150-400); RBC DISTRIBUTION WIDTH 16.8 % (12.0-16.0); RED CELL COUNT 3.53 10/6/uL (4.0-5.6); WHITE BLOOD CELLS 3.2 10/3/uL (4.5-10.5)
[2017-03-09 05:24] LABS: MANUAL DIFF YES %
[2017-03-09 05:43] LABS: BUN (BLOOD UREA NITROGEN) 60 MG/DL (6-23); CALCIUM, SERUM 8.9 MG/DL (8.5-10.4); CHLORIDE, SERUM 102 MMOL/L (96-112); CO2 (CARBON DIOXIDE) 27 MMOL/L (24-34); CREATININE 2.66 MG/DL (0.55-1.02); GFR AFRICAN AMERICAN 20 ML/MIN (>=60); GFR NON AFRICAN AMERICAN 17 ML/MIN (>=60); PHOSPHORUS, SERUM 2.4 MG/DL (2.5-4.5); POTASSIUM, SERUM 3.7 MMOL/L (3.5-5.3); SODIUM, SERUM 141 MMOL/L (135-148)
[2017-03-09 05:45] LABS: GLUCOSE, SERUM 92 MG/DL (60-99)
[2017-03-09 05:46] LABS: BAND NEUTROPHILS 8 %; EOSINOPHILS 6 %; EOSINOPHILS ABSOLUTE (CALC) 0.19 10/3/uL (0.0-0.53); IMMATURE GRANS ABSOLUTE (CALC) 0.16 10/3/uL (0.0-0.11); LYMPHOCYTES 27 %; LYMPHOCYTES ABSOLUTE (CALC) 0.86 10/3/uL (0.67-4.30); METAMYELOCYTES 4 %; MONOCYTES 10 %; MONOCYTES ABSOLUTE (CALC) 0.32 10/3/uL (0.21-1.20); MYELOCYTES 1 %; NEUTROPHILS ABSOLUTE (CALC) 1.66 10/3/uL (2.02-8.40); PLATELET ESTIMATE DEC (ADEQUATE); RBC MORPHOLOGY NORM (NORMAL); SEGMENTED NEUTROPHIL (0) 44 %; TOTAL NUCLEATED CELLS 100; TOXIC GRANULATION 1+
[2017-03-09] MEDS ORDERED: AUG875 PO (11:55)
[2017-03-09] MEDS ORDERED: DEMA10T PO (11:55)
[2017-06-16] MEDS ORDERED: [UNRECOGNIZED DRUG - MIXTURE] IV (15:01)
[2017-06-16] MEDS ORDERED: CENTRUM PO (15:01)
[2017-06-16] MEDS ORDERED: LEVOTHYROXIN88 MCG PO (15:02)
[2017-06-16] MEDS ORDERED: CHEMOTHERAPY IV (15:02)
[2017-06-16] MEDS ORDERED: DEMA100 PO (15:03)
[2017-06-16] MEDS ORDERED: VITD PO (15:03)
[2017-06-16] MEDS ORDERED: SODBICAR10 PO (15:03)
[2017-06-16] MEDS ORDERED: TRAN200 PO (15:04)
[2017-06-16] MEDS ORDERED: NORV5 PO (15:04)
[2017-06-16] MEDS ORDERED: APRES50 PO (15:04)
[2017-06-21] MEDS ORDERED: PERCOCET 7.5/321 TAB PO (07:36)
== END 2017-03-09 12:49 | disposition home or self-care (01) | DRG 808 ==
LOC: ER 16:32 → 5NO 17:02
PROVIDERS: Emergency Medicine; Internal Medicine; Nurse Practitioner Family; Obstetrics & Gynecology Gynecology
DX: D70.9 Neutropenia, unspecified (principal); J96.01 Acute respiratory failure with hypoxia; J18.9 Pneumonia, unspecified organism; J90 Pleural effusion, not elsewhere classified; N18.4 Chronic kidney disease, stage 4 (severe); N17.9 Acute kidney failure, unspecified; D69.6 Thrombocytopenia, unspecified; C56.9 Malignant neoplasm of unspecified ovary; E87.5 Hyperkalemia; R50.81 Fever presenting with conditions classified elsewhere; E78.5 Hyperlipidemia, unspecified; Z86.718 Personal history of other venous thrombosis and embolism; E03.9 Hypothyroidism, unspecified; I12.9 Hypertensive chronic kidney disease with stage 1 through stage 4 chronic kidney disease, or unspecified chronic kidney disease; T45.1X5A Adverse effect of antineoplastic and immunosuppressive drugs, initial encounter
CPT/HCPCS: 36600; 71010; 71020; 71250; 80048; 80053; 80069; 80202; 81001; 82805; 83018; 83735; 83880; 84100; 84132; 84145; 84484; 85025; 85610; 85730; 87040; 87493; 87493-59; 87641; 93005; 93306; 94640; 94660; 96374; 99285; A9270-GY; J0610; J0692; J2405; J3370; J3475; P9047